=== PATIENT | female | born 1930 | race Caucasian/White ===

== ENCOUNTER 2020-01-21 15:29 | Emergency (ER) | payer MEDICARE, BC ==
--- NOTE | 2020-01-21 16:25 | EDM.PDOC ---
ED HPI GENERAL MEDICAL PROBLEM - General Chief Complaint: General Time Seen by Provider: 01/21/20 16:25 Source of Information: Reports: Patient, Family (Patient's daughter) History Limitations: Reports: Other (Patient with dementia and most of the history comes from the patient's daughter.) - History of Present Illness INITIAL COMMENTS - FREE TEXT/NARRATIVE: 89-year-old female who presents to the emergency department via private vehicle with her daughter with reports that she has been or confused with intermittent slurring of speech and less responsive than has been progressive over the past month. Over the last week she has fallen several times and today fell 2. She has. Review more weak over the past few days. She also appears to be more confused over this time period as well. The patient apparently fell and caught herself with her hand a 1 time and then the other time fell and hit the back of her head. She states that she remembers the fall but she cannot tell me anything about it. She does report she has bilateral hand pain. She is in no distress and appears to resting quietly on the stretcher. She tells me that she does have pain that she is unable to quantitate or qualitate the pain. There is a small skin tear over her right wrist that has been dressed by the staff at [facility]. This is really all the history that I can obtain. The patient is awake and alert and appears nontoxic and in no acute distress at this point. There are no other associated signs or symptoms. There are no other modifying factors. Onset: Other (Past month with worsening over the past week.) Duration: Getting Worse Location: Reports: Head, Upper Extremity, Left, Upper Extremity, Right Quality: Reports: Other (Unknown) Improves with: Reports: None Worsens with: Reports: None Context: Reports: Other (As above.) Associated Symptoms: Reports: No Other Symptoms (No other known.) Treatments [employer]OR: Reports: Other (see below) (Nothing.) - Related Data Allergies Allergy/AdvReac Type Severity Reaction Status Date / Time No Known Allergies Allergy Verified 11/14/19 11:39 Home Meds: Home Meds Sulfamethoxazole/Trimethoprim [Bactrim Ds Tablet] 1 each PO BID 10 Days #20 tablet 01/21/20 [Rx] Past Medical History Cardiovascular History: Reports: Heart Murmur Neurological History: Reports: Other (See Below) (Essential tremor) Psychiatric History: Reports: Dementia - Past Surgical History GI Surgical History: Reports: Cholecystectomy Female Surgical History: Reports: Hysterectomy Social & Family History - Tobacco Use Smoking Status *Q: Never Smoker - Alcohol Use Alcohol Use History: No - Living Situation & Occupation Living situation: Reports: Assisted Living (Lives in [facility]. Is supposed to be moving to the memory unit this coming week.) Occupation: Retired ED ROS GENERAL - Review of Systems Review Of Systems: See Below (Should be noted that this is not really obtainable from the patient because of her dementia but I have been able to get most of the questions answered through the patient's daughter. Otherwise it is unobtainable.) Constitutional: Reports: Fatigue (Sleeping more). Denies: Fever HEENT: Denies: Throat Pain Respiratory: Reports: No Symptoms Cardiovascular: Reports: No Symptoms GI/Abdominal: Reports: No Symptoms : Reports: No Symptoms (No symptoms reported) Musculoskeletal: Reports: No Symptoms Skin: Reports: No Symptoms Neurological: Reports: Confusion Psychiatric: Reports: Confusion Hematologic/Lymphatic: Reports: No Symptoms (Not chronically anticoagulated.) Immunologic: Reports: No Symptoms ED EXAM, GENERAL - Physical Exam Exam: See Below Exam Limited By: No Limitations General Appearance: Alert, WD/WN, No Apparent Distress Eye Exam: Bilateral Eye: EOMI, Normal Inspection Ears: Normal External Exam, Hearing Grossly Normal Ear Exam: Bilateral Ear: Auricle Normal Nose: Normal Inspection, Normal Mucosa, No Blood Throat/Mouth: Normal Inspection, Normal Oropharynx, Normal Voice, No Airway Compromise, Other (Moist mucous membranes) Head: Normocephalic, Other (Swelling over the. No crepitus or bony deformity noted.) Neck: Normal Inspection, Supple, Non-Tender, Full Range of Motion Respiratory/Chest: No Respiratory Distress, Lungs Clear, Normal Breath Sounds, No Accessory Muscle Use, Chest Non-Tender Cardiovascular: Normal Peripheral Pulses, Regular Rate, Rhythm, No Edema, No Gallop, No JVD Peripheral Pulses: 1+: Dorsalis Pedis (R), 2+: Radial (L), Radial (R) GI/Abdominal: Normal Bowel Sounds, Soft, Non-Tender, No Organomegaly, No Distention, No Mass, Pelvis Stable (And nontender with compression.), Other (Scaphoid abdomen) Back Exam: Normal Inspection. No: CVA Tenderness (R), CVA Tenderness (L), Paraspinal Tenderness, Vertebral Tenderness Extremities: Normal Inspection, Normal Range of Motion, Non-Tender, No Pedal Edema, Normal Capillary Refill Neurological: Alert, CN II-XII Intact, Confused, Disoriented Skin Exam: Warm, Dry, Intact, Normal Color, No Rash EKG INTERPRETATION EKG Date: 01/21/20 Time: 18:00 Rhythm: NSR Rate (Beats/Min): 67 [place]: LAD-Left Clementon Deviation P-Wave: Present QRS: Other (Poor R-wave progression. Inferior Q's consistent with an old inferior [place]. LDH.) ST-T: Normal QT: Normal Comparison: NA - No Prior EKG EKG Interpretation Comments: No STEMI pattern. No old EKG for comparison. Course - Vital Signs Last Recorded V/S: Last Vital Signs Temp 36.7 C 01/21/20 15:29 Pulse 75 01/21/20 15:29 Resp 17 01/21/20 15:29 BP 146/68 H 01/21/20 15:29 Pulse Ox 96 01/21/20 15:29 Orthostatic Blood Pressure [ 163/65 Standing] Orthostatic Blood Pressure [ 156/71 Sitting] Orthostatic Blood Pressure [ 157/74 Supine] - Orders/Labs/Meds Orders: Active Orders 24 hr Category Date Time Status Cervical Spine wo Cont [CT] Stat Exams 01/21/20 16:43 Taken Chest 2V [CR] Stat Exams 01/21/20 16:43 Taken Hand Comp Min 3V Bi [CR] Stat Exams 01/21/20 16:43 Taken Head wo Cont [CT] Stat Exams 01/21/20 16:43 Taken CULTURE URINE [RM] Stat Lab 01/21/20 17:02 Received Peripheral IV Insertion Adult [OM.PC] Routine Oth 01/21/20 16:43 Ordered EKG 12 Lead [EK] Routine Ther 01/21/20 16:43 Ordered Labs: Laboratory Tests 01/21/20 01/21/20 01/21/20 Range/Units 17:02 17:02 17:02 WBC 5.4 (4.5-12.0) X10-3/uL RBC 3.97 (3.23-5.20) x10(6)uL Hgb 12.4 (11.5-15.5) g/dL Hct 35.8 (30.0-51.3) % MCV 90.3 (80-96) fL MCH 31.1 (27.7-33.6) pg MCHC 34.5 (32.2-35.4) g/dL RDW 12.2 (11.5-15.5) % Plt Count 169 (125-369) X10(3)uL MPV 6.4 L (7.4-10.4) fL Neut % (Auto) 72.8 (46-82) % Lymph % (Auto) 18.8 (13-37) % [place] % (Auto) 6.7 (4-12) % Eos % (Auto) 1 (1.0-5.0) % Baso % (Auto) 1 (0-2) % Neut # (Auto) 3.9 (1.6-8.3) # Lymph # (Auto) 1.0 (0.6-5.0) # [place] # (Auto) 0.4 (0.0-1.3) # Eos # (Auto) 0.1 (0.0-0.8) # Baso # (Auto) 0.0 (0.0-0.2) # Sodium 142 (135-145) mmol/L Potassium 3.3 L (3.5-5.3) mmol/L Chloride 104 (100-110) mmol/L Carbon Dioxide 28 (21-32) mmol/L BUN 22 H (7-18) mg/dL Creatinine 1.2 H (0.55-1.02) mg/dL Est Cr Clr Drug Dosing 24.60 mL/min Estimated GFR (MDRD) 42 L (>60) BUN/Creatinine Ratio 18.3 (9-20) Glucose 99 (80-116) mg/dL Calcium 10.1 (8.6-10.2) mg/dL Magnesium 2.5 (1.8-2.5) mg/dL Total Bilirubin 0.4 (0.1-1.3) mg/dL AST 14 (5-25) IU/L ALT 12 (12-36) U/L Alkaline Phosphatase 106 (56-112) IU/L Troponin I (4.0-60.3) pg/mL Total Protein 6.8 (6.0-8.0) g/dL Albumin 3.8 (3.2-4.6) g/dL Globulin 3.0 g/dL Albumin/Globulin Ratio 1.3 Urine Color Yellow (YELLOW) Urine Appearance Slightly cloudy (CLEAR) Urine pH 6.0 (5.0-6.5) Ur Specific [place] 1.015 (1.010-1.025) Urine Protein Trace (NEGATIVE) mg/dL Urine Glucose (UA) Normal (NORMAL) mg/dL Urine Ketones Negative (NEGATIVE) mg/dL Urine Occult Blood Moderate H (NEGATIVE) Urine Nitrite Negative (NEGATIVE) Urine Bilirubin Negative (NEGATIVE) Urine Urobilinogen Normal (NEGATIVE) mg/dL Ur Leukocyte Esterase Moderate H (NEGATIVE) U Hyaline Cast (Auto) Moderate H (NS) Urine RBC 75-100 H (0-5) Urine WBC 50-75 H (0-5) Ur Squamous Epith Cells Rare (NS,R,O) Urine Bacteria Moderate H (NS) 01/21/20 Range/Units 17:02 WBC (4.5-12.0) X10-3/uL RBC (3.23-5.20) x10(6)uL Hgb (11.5-15.5) g/dL Hct (30.0-51.3) % MCV (80-96) fL MCH (27.7-33.6) pg MCHC (32.2-35.4) g/dL RDW (11.5-15.5) % Plt Count (125-369) X10(3)uL MPV (7.4-10.4) fL Neut % (Auto) (46-82) % Lymph % (Auto) (13-37) % [place] % (Auto) (4-12) % Eos % (Auto) (1.0-5.0) % Baso % (Auto) (0-2) % Neut # (Auto) (1.6-8.3) # Lymph # (Auto) (0.6-5.0) # [place] # (Auto) (0.0-1.3) # Eos # (Auto) (0.0-0.8) # Baso # (Auto) (0.0-0.2) # Sodium (135-145) mmol/L Potassium (3.5-5.3) mmol/L Chloride (100-110) mmol/L Carbon Dioxide (21-32) mmol/L BUN (7-18) mg/dL Creatinine (0.55-1.02) mg/dL Est Cr Clr Drug Dosing mL/min Estimated GFR (MDRD) (>60) BUN/Creatinine Ratio (9-20) Glucose (80-116) mg/dL Calcium (8.6-10.2) mg/dL Magnesium (1.8-2.5) mg/dL Total Bilirubin (0.1-1.3) mg/dL AST (5-25) IU/L ALT (12-36) U/L Alkaline Phosphatase (56-112) IU/L Troponin I 5.5 (4.0-60.3) pg/mL Total Protein (6.0-8.0) g/dL Albumin (3.2-4.6) g/dL Globulin g/dL Albumin/Globulin Ratio Urine Color (YELLOW) Urine Appearance (CLEAR) Urine pH (5.0-6.5) Ur Specific [place] (1.010-1.025) Urine Protein (NEGATIVE) mg/dL Urine Glucose (UA) (NORMAL) mg/dL Urine Ketones (NEGATIVE) mg/dL Urine Occult Blood (NEGATIVE) Urine Nitrite (NEGATIVE) Urine Bilirubin (NEGATIVE) Urine Urobilinogen (NEGATIVE) mg/dL Ur Leukocyte Esterase (NEGATIVE) U Hyaline Cast (Auto) (NS) Urine RBC (0-5) Urine WBC (0-5) Ur Squamous Epith Cells (NS,R,O) Urine Bacteria (NS) Meds: Medications Discontinued Medications Generic Name Dose Route Start Last Admin Trade Name Freq PRN Reason Stop Dose Admin Ceftriaxone Sodium 1 gm 01/21/20 19:50 01/21/20 20:06 Rocephin IVPUSH 01/21/20 19:51 1 gm ONETIME ONE Administration Sodium Chloride 10 ml 01/21/20 16:43 01/21/20 15:40 Saline Flush FLUSH 10 ml ASDIRECTED PRN Administration Keep Vein Open - Radiology Interpretation Free Text/Narrative:: CT scan of head shows no acute intracranial findings per the CR L radiologist. CT scan of cervical spine showed no acute fracture or traumatic malalignment of the cervical spine or the CR L radiologist. X-rays of both hands showed degenerative changes but no acute finding per the CR L radiologist. Chest x-ray, 2 views showed these per the CR L radiologist. - Re-Assessments/Exams Free Text/Narrative Re-Assessment/Exam: 01/21/20 19:30: The patient's blood tests were all reassuringly normal. An EKG showed no evidence of a STEMI and no acute process. There was evidence of a urinary tract infection. The CT scans of her head and neck were negative. The x- rays of her chest and hands are also negative. She appears to have bruises and scrapes from her falls but nothing of a more serious nature. She appears nontoxic and her vital signs have remained stable while here in the emergency department. I will treat the patient with Rocephin 1 g IV in the emergency department and I will place her on Bactrim DS twice a day for 10 days. She is to follow-up with her primary provider. I discussed all this with the patient's daughter and she is in agreement with this plan. The patient's daughter is moving the patient to the memory unit and will be occurring sometime this week hopefully. Precautions and reasons for return to the emergency department were discussed with the patient's daughter and were detailed in the patient's discharge instructions. Departure - Departure Time of Disposition: 20:00 Disposition: Home, Self-Care 01 Condition: Fair (Stable.) Clinical Impression: Frequent falls UTI (urinary tract infection) Qualifiers: Urinary tract infection type: site unspecified Hematuria presence: with hematuria Qualified Code(s): N39.0 - Urinary tract infection, site not specified Hand contusion Qualifiers: Encounter type: initial encounter Laterality: unspecified laterality Qualified Code(s): S60.229A - Contusion of unspecified hand, initial encounter Head contusion Qualifiers: Encounter type: initial encounter Contusion of head detail: unspecified part of head Qualified Code(s): S00.93XA - Contusion of unspecified part of head, initial encounter - Discharge Information Prescriptions: Sulfamethoxazole/Trimethoprim [Bactrim Ds Tablet] 1 each PO BID 10 Days #20 tablet Instructions: Fall Prevention in the Home, Adult, [id number], Antibiotic Me dicine, Adult, [id number], Facial or Scalp Contusion, [id number], Hand Contusion, [id number], Urinary Tract Infection, Adult, [id number] Referrals: Juli Live [employer] [Primary Care Provider] - Forms: ED Department Discharge Additional Instructions: Her blood tests are all reassuringly normal. The CT scans of her head and neck were normal. The x-rays of both of her hands and her chest were normal as well. Her urine test showed evidence of infection. I suspect this is a reason that she is having the increased weakness, increased confusion and the more frequent falls. She was given Rocephin 1 g IV in the emergency department and I am sending her home with a prescription that went to [facility] in [facility] for Bactrim that she should start tomorrow. She needs to be followed more closely and not allowed to have unassisted ambulation. She needs to have increased fluid intake. Back to the emergency department for worsening weakness, vomiting, worsening confusion, fever or any other concerning sign or symptom. Sepsis Event Note (ED) - Evaluation Sepsis Screening Result: No Definite Risk - Focused Exam Vital Signs: Vital Signs Temp Pulse Resp BP Pulse Ox 01/21/20 15:29 36.7 C 75 17 146/68 H 96 - My Orders Last 24 Hours: My Active Orders 01/21/20 16:43 Cervical Spine wo Cont [CT] Stat Chest 2V [CR] Stat Hand Comp Min 3V Bi [CR] Stat Head wo Cont [CT] Stat Peripheral IV Insertion Adult [OM.PC] Routine EKG 12 Lead [EK] Routine 01/21/20 17:02 CULTURE URINE [RM] Stat - Assessment/Plan Last 24 Hours: My Active Orders 01/21/20 16:43 Cervical Spine wo Cont [CT] Stat Chest 2V [CR] Stat Hand Comp Min 3V Bi [CR] Stat Head wo Cont [CT] Stat Peripheral IV Insertion Adult [OM.PC] Routine EKG 12 Lead [EK] Routine 01/21/20 17:02 CULTURE URINE [RM] Stat
[2020-01-21] MEDS ORDERED: Sodium Chloride 0.9% 10 ML Syringe FLUSH PRN (16:43)
[2020-01-21] MEDS ORDERED: cefTRIAXone 2 GM Vial IVPUSH ONE (19:50)
== END 2020-01-21 20:00 | disposition home or self-care (01) ==
LOC: FB.ED 15:29
DX: S00.93XA Contusion of unspecified part of head, initial encounter (principal); S60.222A Contusion of left hand, initial encounter; S60.221A Contusion of right hand, initial encounter; N39.0 Urinary tract infection, site not specified; R31.9 Hematuria, unspecified; F03.90 Unspecified dementia, unspecified severity, without behavioral disturbance, psychotic disturbance, mood disturbance, and anxiety; Z90.710 Acquired absence of both cervix and uterus; Z90.49 Acquired absence of other specified parts of digestive tract; R29.6 Repeated falls; W19.XXXA Unspecified fall, initial encounter
CPT/HCPCS: 36415; 70450; 71046; 72125; 73130; 80053; 81001; 83735; 84484; 85025; 87086; 93005; 96374; 99285; J0696